=== PATIENT | male | born 2000 | race Caucasian/White ===

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

== ENCOUNTER 2021-02-05 15:09 | Emergency (ER) | payer OTHER ==
[~2021-02-05] VITALS: Ht 177.8 cm; Wt 100.7 kg
[2021-02-05 15:34] VITALS: BP 104/72
--- NOTE | 2021-02-05 15:37 | NUR ---
clinical lab clerk: EKG done in triage
[2021-02-05] MEDS ORDERED: SODIUM CHLORIDE 0.9% 1,000ML IVBOLUS ONE (16:00)
[2021-02-05] MEDS ORDERED: FAMOTIDINE 20 MG/2 ML IVPush ONE (16:00)
[2021-02-05] MEDS ORDERED: MAALOX/HYOSCYAMINE/LIDOCAINE 45 ML BTL PO ONE (16:00)
[2021-02-05] MEDS ORDERED: ONDANSETRON 2MG/ML, 2ML IVPush ONE (16:00)
[2021-02-05 16:22] LABS: BASOPHILS % (AUTO) 0 % (0-1); EOSINOPHILS % (AUTO) 0 % (1-7); LYMPHOCYTES % (AUTO) 5 % (22-44); MEAN CORPUSCULAR HEMOGLOBIN 29.4 pg (27.5-34.5); MEAN CORPUSCULAR HGB CONC 34.1 g/dL (33.2-36.2); MEAN PLATELET VOLUME 8.4 fL (7.4-10.4); MONOCYTES % (AUTO) 5 % (2-9); NEUTROPHILS % (AUTO) 90 % (42-75); PLATELET COUNT 298 x10^3/uL (130-400); RED BLOOD COUNT 5.96 x10^6/uL (4.38-5.82); RED CELL DISTRIBUTION WIDTH 13.7 % (9.4-14.8)
[2021-02-05 16:24] LABS: ALANINE AMINOTRANSFERASE 44 U/L (12-78); ALBUMIN 4.5 g/dL (3.4-5.0); ANION GAP 10 mmol/L (5-15); CHLORIDE 108 mmol/L (98-107); CREATININE 0.92 mg/dL (0.7-1.3)
[2021-02-05 16:27] LABS: ALKALINE PHOSPHATASE 91 U/L (45-117); TOTAL PROTEIN 7.8 g/dL (6.4-8.2)
[2021-02-05] MEDS ORDERED: ONDANSETRON 2MG/ML, 2ML ONE (16:31)
[2021-02-05] MEDS ORDERED: FAMOTIDINE 20 MG/2 ML ONE (16:32)
[2021-02-05] MEDS ORDERED: MAALOX/HYOSCYAMINE/LIDOCAINE 45 ML BTL ONE (16:32)
--- NOTE | 2021-02-05 16:44 | NUR ---
PT MEDICATED PER MAR AT THIS TIME. PT PROVIDED AN EXTRA WARM BLANKET PER PT REQUEST.
--- NOTE | 2021-02-05 17:12 | NUR ---
PT TO CT VIA [facility] AT THIS TIME.
[2021-02-05] MEDS ORDERED: OMNIPAQUE 350 MG/ML, 100ML BOTTLE ONE (17:20)
== END 2021-02-05 17:56 | disposition home or self-care (01) ==
LOC: ED 16:31
DX: E86.0 Dehydration (principal); R11.2 Nausea with vomiting, unspecified; R10.13 Epigastric pain
CPT/HCPCS: 36415; 74177; 80053; 83690; 85025; 93005; 96361; 96374; 96375; 99285; J2405; J7030; Q9967

== ENCOUNTER 2021-04-25 11:17 | Emergency (ER) | payer OTHER ==
[~2021-04-25] VITALS: Ht 177.8 cm; Wt 101.1 kg
[2021-04-25 14:57] VITALS: BP 130/70
--- NOTE | 2021-04-25 15:06 | NUR ---
pt educated on dc instructions and IS use, verbalized understanding. ambulatoryt o dc desk with steady gait.
== END 2021-04-25 15:08 | disposition home or self-care (01) ==
LOC: ED 14:25
DX: S20.212A Contusion of left front wall of thorax, initial encounter (principal); W18.30XA Fall on same level, unspecified, initial encounter; Y93.89 Activity, other specified; Y92.69 Other specified industrial and construction area as the place of occurrence of the external cause; Y99.8 Other external cause status
CPT/HCPCS: 99283